=== PATIENT | female | born 1995 | race Hispanic/Latino ===

== ENCOUNTER → 2019-08-11 | Outpatient (CLI) | payer BC ==
--- NOTE | 2019-08-11 21:35 | Diagnostic Imaging Report ---
Hepatobiliary Scan with Gallbladder Ejection Fraction Clinical information: RUQ abdominal pain Report: Following intravenous administration of 5.8 millicuries of Tc-99m mebrofenin, dynamic images of the abdomen in the anterior projection were obtained through 60 minutes. Sincalide (CCK analog) 1.1 micrograms was administered intravenously over 30 minutes with additional imaging for determination of gallbladder ejection fraction. Perfusion to the liver is normal. Extraction of tracer from the blood pool by the liver parenchyma is normal. Tracer is seen promptly within the biliary tract. The gallbladder begins to fill by 10 minutes post-injection of tracer and fills adequately. Tracer is seen in the small bowel by 56 minutes. The gallbladder ejection fraction with administration of sincalide is 67% (normal greater than 40%). Impression: 1. Filling of the gallbladder excludes the diagnosis of acute cystic duct obstruction/acute cholecystitis. 2. Normal gallbladder ejection fraction of 67% does not support the clinical diagnosis of chronic cholecystitis/gallbladder dyskinesia. Signed by: Dr. Sonal Velez M.D. on 08/11/2019 9:32 PM
== END ==
LOC: NM 12:37
PROVIDERS: ATTEND Internal Medicine Gastroenterology
DX: R10.11 Right upper quadrant pain (principal)
CPT/HCPCS: 78227; 81025; A9537

== ENCOUNTER → 2020-06-19 | Outpatient (CLI) | payer OTHER | LOC: MAMMO 12:08 | PROVIDERS: ATTEND Family Medicine | DX: N60.02 Solitary cyst of left breast (principal); N60.01 Solitary cyst of right breast ==

== ENCOUNTER → 2020-12-20 | Outpatient (CLI) | payer OTHER | LOC: US 14:12 | PROVIDERS: ATTEND Family Medicine | DX: N60.22 Fibroadenosis of left breast (principal) ==

== ENCOUNTER 2021-01-17 21:25 | Emergency (ER) | payer OTHER ==
[~2021-01-17] VITALS: Ht 154.9 cm; Wt 54.4 kg
[2021-01-17] MEDS ORDERED: SODIUM CHLORIDE 0.9% 1000ML 1,000 ML ONE (21:45)
[2021-01-17 21:59] LABS: BASOPHILS % 0.3 % (0.0-1.0); EOSINOPHILS % 0.2 % (0.0-6.0); HEMATOCRIT 42.7 % (34.2-44.1); HEMOGLOBIN 14.8 g/dL (12.0-16.0); LYMPHOCYTES # (AUTO) 1.7 (1.0-3.2); LYMPHOCYTES % 16.5 % (18.0-39.1); MEAN CORPUSCULAR HEMOGLOBIN 31.8 pg (28-32); MEAN CORPUSCULAR HGB CONC 34.7 g/dL (31-35); MEAN CORPUSCULAR VOLUME 91.6 fL (81-99); MONOCYTES # (AUTO) 0.7 (0.2-0.8); MONOCYTES % 7.1 % (4.4-11.3); NEUTROPHILS # (AUTO) 7.6 (2.1-6.9); NEUTROPHILS % 75.6 % (38.7-80.0); PLATELET COUNT 296 x10e3/uL (140-360); RED BLOOD COUNT 4.66 x10e6/uL (3.6-5.1); RED CELL DISTRIBUTION WIDTH 11.7 % (11.7-14.4)
[2021-01-17 22:22] LABS: ALBUMIN 4.5 g/dL (3.5-5.0); ALBUMIN/GLOBULIN RATIO 1.4 (0.8-2.0); ANION GAP 16.4 mmol/L (8-16); CALCIUM 9.2 mg/dL (8.4-10.2); CREATININE, SERUM 0.73 mg/dL (0.57-1.11); POTASSIUM 3.4 mmol/L (3.5-5.1)
[2021-01-17 22:29] LABS: CREATINE KINASE MB 0.4 ng/mL (0-5.0)
[2021-01-17 23:13] LABS: CLARITY,URINE CLEAR (CLEAR); COLOR,URINE YELLOW (YELLOW); KETONES,URINE 2+ (NEGATIVE); LEUKOCYTE ESTERASE ,URINE NEGATIVE (NEGATIVE); NITRITE,URINE NEGATIVE (NEGATIVE); PROTEIN,URINE DIPSTICK NEGATIVE (NEGATIVE); URINE UROBILINOGEN 0.2 mg/dL (0.2 - 1)
[2021-01-17 23:19] LABS: BACTERIA,URINE MODERATE /HPF; EPITHELIAL CELLS,URINE FEW /LPF; MUCUS,URINE MANY (RARE)
[2021-01-17] MEDS ORDERED: SODIUM CHLORIDE 0.9% 50ML 50 ML ONE (23:35)
[2021-01-17] MEDS ORDERED: IOPAMIDOL 370 MG/ML 200 ML INFUS..BTL INJ ONE (23:36)
== END 2021-01-18 01:15 | disposition home or self-care (01) ==
LOC: ER 21:36
DX: B34.9 Viral infection, unspecified (principal); R53.1 Weakness; R53.81 Other malaise; Z20.822 Contact with and (suspected) exposure to COVID-19
CPT/HCPCS: 36415; 71045; 71260; 80053; 81001; 82550; 82553; 84484; 84702; 85025; 85651; 86021; 86039; 86140; 86200; 86308; 86431; 87400; 99283; J7030; Q9967; U0002